=== PATIENT | male | born 1960 | race Caucasian/White ===

== ENCOUNTER 2017-11-14 11:55 | Emergency (ER) | payer OTHER ==
[~2017-11-14] VITALS: Ht 172.7 cm; Wt 78.4 kg
--- NOTE | 2017-11-14 12:10 | PHYS DOC ---
Past History Past Medical History History of constipation, benign prosthetic hyperplasia, heartburn, hypertension and chronic neck pain. Smoking: Non-smoker Alcohol Use: None Drug Use: Marijuana Adult General Chief Complaint Chief Complaint: SYNCOPE HPI HPI 57-year-old male presenting the emergency department after having a syncopal episode earlier today. He has had intermittent epigastric abdominal pain over the past few days that he describes as a burning sensation that is nonradiating intermittent and without alleviating factors. He denies fevers chills nausea or vomiting. His pain currently is mild to minimal discomfort. The patient also reports having blood in his stools over the past few days. Review of systems is negative for chest pain shortness of breath fevers chills headache neck stiffness confusion cyanosis lethargy. All other review of systems is negative unless otherwise noted in history of present illness. ED course: 57-year-old male presenting the emergency department today with epigastric abdominal pain and syncope. On arrival the patient is awake and breathing comfortably. Patient has a sinus rhythm on the monitor. Blood pressure is mildly elevated initially. Heart rate within normal limits. EKG obtained which shows sinus rhythm with a regular rate. ST segments are congruent. Not suggestive of ACS. Chest x-ray along with head CT and neck CT and CT abdomen pelvis ordered with blood work. CT unremarkable for acute injury or pathology. Blood work unremarkable. Given the patient's syncopal episode in the context of heart disease associated with blood in the stools, we will admit the patient. We do not have GI here at our hospital so we'll admit the patient to [facility]. I spoke with Dr. Granda who accepts the patient for admission. Review of Systems Review of Systems SEE ABOVE. Current Medications Current Medications Current Medications Medications (Trade) Dose Ordered Sig/Miles Start Time Stop Time Status Last Admin Dose Admin Sodium Chloride 1,000 ml @ 1,000 mls/hr 1X ONCE 11/14/17 12:15 11/14/17 13:14 UNV Physical Exam Physical Exam SEE ABOVE Constitutional: Well developed, well nourished, no acute distress, non-toxic appearance. [] HENT: Normocephalic, atraumatic, bilateral external ears normal, oropharynx moist, no oral exudates, nose normal. [] Eyes: PERRLA, EOMI, conjunctiva normal, no discharge. [] Neck: Normal range of motion, no tenderness, supple, no stridor. [] Cardiovascular:Heart rate regular rhythm, no murmur [] Lungs & Thorax: Bilateral breath sounds clear to auscultation [] Abdomen: Bowel sounds normal, soft, no tenderness, no masses, no pulsatile masses. Negative McBurney's point. Negative Davalos sign. No guarding. No rebound tenderness. Skin: Warm, dry, no erythema, no rash. [] Back: No tenderness, no CVA tenderness. [] Extremities: No tenderness, no cyanosis, no clubbing, ROM intact, no edema. [] Neurologic: Mental status: Awake oriented and alert x3 Cranial nerves: Extraocular movements intact, eyebrows keyanna bilaterally, smile symmetric, uvula elevation nl, shoulder shrug intact bilaterally, tongue protrusion normal DTRs: 2+ Sensation: equal and normal in all extremities Strength: 5/5 in upper and lower extremities bilaterally Psychologic: Affect normal, judgement normal, mood normal. [] EKG EKG [] Radiology/Procedures Radiology/Procedures [] Course & Med Decision Making Course & Med Decision Making Pertinent Labs and Imaging studies reviewed. (See chart for details) [] Dragon Disclaimer Dragon Disclaimer This electronic medical record was generated, in whole or in part, using a voice recognition dictation system. Departure Departure: Impression: Primary Impression: Syncope Additional Impressions: Abdominal pain Blood in stool Disposition: XFER SHT-TRM HOSP Condition: STABLE Problem Qualifiers MICHELLE CUELLAR MD Nov 14, 2017 12:10
[2017-11-14] MEDS ORDERED: IV NORMAL SALINE 1,000ML 1,000 ML IV ONE (12:15)
[2017-11-14 12:25] LABS: BASO # 0.1 x10^3/uL (0.0-0.2); BASO % 1 % (0-3); EOS # 0.2 x10^3/uL (0.0-0.7); EOS % 3 % (0-3); HEMATOCRIT 44.3 % (39.0-53.0); LYMPH # 1.5 x10^3/uL (1.0-4.8); LYMPH % 21 % (24-48); MEAN CORPUSCULAR HEMOGLOBIN 30 pg (25-35); MEAN CORPUSCULAR HGB CONC 34 g/dL (31-37); MEAN CORPUSCULAR VOLUME 87 fL (79-100); MONO # 0.5 x10^3/uL (0.0-1.1); MONO % 7 % (0-9); NEUT # 4.7 x10^3uL (1.8-7.7); NEUT % 67 % (31-73); PLATELET COUNT 338 x10^3/uL (140-400); RED BLOOD COUNT 5.07 x10^6/uL (4.30-5.70); RED CELL DISTRIBUTION WIDTH 13.3 % (11.5-14.5); WHITE BLOOD COUNT 6.9 x10^3/uL (4.0-11.0)
[2017-11-14] MEDS ORDERED: IOHEXOL 300 MG/ML 75 ML VIAL. IV ONE (12:30)
[2017-11-14 12:36] LABS: CALCIUM 9.6 mg/dL (8.5-10.1); POTASSIUM 4.5 mmol/L (3.5-5.1)
--- NOTE | 2017-11-14 12:48 | RAD ---
PQRS Compliance Statement: One or more of the following individualized dose reduction techniques were utilized for this examination: 1. Automated exposure control 2. Adjustment of the mA and/or kV according to patient size 3. Use of iterative reconstruction technique CT head and cervical spine without contrast 11/14/2017 12:10 PM INDICATION: Syncope today. Head and neck pain. COMPARISON: None available TECHNIQUE: Multiple axial CT images of the head were obtained from skull base through the vertex without intravenous contrast. Multiple axial CT images of the cervical spine were obtained without intravenous contrast. Coronal and sagittal reformats are provided. FINDINGS: Head: Ventricles, sulci and basal cisterns are within normal limits. There is no hydrocephalus. Hernandez-white matter differentiation is normal. There is no acute intracranial hemorrhage. There is no mass, mass effect or midline shift. Posterior fossa is normal in appearance. Visualized portions of the orbits are normal with exception of right lens replacement. Moderate mucosal thickening is identified involving the ethmoid air cells and sphenoid sinuses. Mastoid air cells are well aerated. Scalp and calvaria are normal. Cervical spine: Alignment of the cervical spine is normal. Skull base is intact. Craniocervical junction is normal in appearance. Atlantoaxial articulation is normal. Vertebral body heights are maintained without evidence for acute fracture. There is moderate disc height loss at C6-C7 with marginal osteophytosis and endplate sclerosis. There is mild disc height loss at C5-C6. There is moderate facet arthropathy on the left at C2-C3 and C7-T1. There is advanced facet arthropathy on the right at C7-T1. There is moderate to severe left neuroforaminal stenosis at C6-C7 secondary to posterior disc osteophyte complex, moderate uncovertebral joint disease and facet arthropathy. No significant spinal canal stenosis. There is no prevertebral soft tissue swelling. Thyroid gland is normal in appearance. Mild emphysematous changes are identified at the lung apices. IMPRESSION: 1. No acute intracranial hemorrhage. 2. No acute fracture or malalignment of the cervical spine. Mild cervical spondylosis. Electronically signed by: Tere Vargas MD (11/14/2017 12:45 PM) [id number]
--- NOTE | 2017-11-14 12:51 | RAD ---
EXAM: Chest, single view. HISTORY: Near syncope. COMPARISON: None. FINDINGS: A frontal view of the chest is obtained. There is no infiltrate, pleural effusion or pneumothorax. The heart is normal in size. There is a small nodular opacity overlying the right lower lobe possibly due to a nipple shadow. The heart is normal in size. IMPRESSION: 1. No acute pulmonary finding. 2. Small nodular opacity overlying the right lower lobe possibly due to a nipple shadow. Short-term follow-up can be performed following placement of nipple markers to exclude a nodule in this location. Electronically signed by: Delma Stuart MD (11/14/2017 12:48 PM) [place] [id number]
[2017-11-14] MEDS ORDERED: FINA5TAB4 PO (12:53)
[2017-11-14] MEDS ORDERED: METO25TA4 PO (12:53)
[2017-11-14] MEDS ORDERED: TRAM50TA PO (12:53)
[2017-11-14] MEDS ORDERED: LISI-334 PO (12:53)
[2017-11-14] MEDS ORDERED: ASPI-630 PO (12:53)
[2017-11-14] MEDS ORDERED: DOCU100C28 PO (12:53)
[2017-11-14] MEDS ORDERED: IBUP800T19 PO (12:53)
[2017-11-14] MEDS ORDERED: [UNRECOGNIZED DRUG - CODE] PO (12:53)
[2017-11-14] MEDS ORDERED: HYDR-2758 PO (12:53)
[2017-11-14] MEDS ORDERED: RANI150C PO (12:53)
--- NOTE | 2017-11-14 12:56 | RAD ---
PQRS Compliance Statement: One or more of the following individualized dose reduction techniques were utilized for this examination: 1. Automated exposure control 2. Adjustment of the mA and/or kV according to patient size 3. Use of iterative reconstruction technique CT abdomen/pelvis with contrast 11/14/2017 12:22 PM INDICATION: Syncope with epigastric pain COMPARISON: None available TECHNIQUE: Multiple axial CT images of the abdomen and pelvis were obtained after the intravenous administration of 75 mL Omnipaque 300. Coronal and sagittal reformats are provided. FINDINGS: Visualized portions of the lung bases are clear. Heart size is within normal limits. No suspicious hepatic masses are identified. Liver is homogeneous in enhancement. Spleen, bilateral adrenal glands, and pancreas are normal in appearance. Gallbladder is present without adjacent inflammatory changes. The abdominal aorta is normal in course and caliber. There are no pathologically enlarged lymph nodes in the abdomen and pelvis. There is no abdominal free fluid. There is no free intraperitoneal air. Mild atherosclerotic changes are present. The kidneys enhance symmetrically. There is no suspicious renal mass. There is no hydronephrosis. There are no suspected calculi within the kidneys, ureters or urinary bladder. There is a 4 mm hypoattenuating lesion in the inferior pole right kidney, statistically favor to represent a simple cyst. Small and large bowel are normal in caliber. There is no evidence for bowel obstruction. There are no pericolonic inflammatory changes. A normal, nondilated appendix is visualized without adjacent inflammatory changes. Urinary bladder is within normal limits given degree of distention. Prostate is mildly enlarged measuring 3.7 x 5.5 cm. No suspicious osseous abnormality is identified. Inferior endplate Schmorl's node is identified at T12. IMPRESSION: No acute abnormality is identified in abdomen and pelvis. Electronically signed by: Tere Vargas MD (11/14/2017 12:53 PM) [id number]
[2017-11-14 13:26] VITALS: BP 159/104
--- NOTE | 2017-11-14 14:07 | EKG ---
[address] [address] Test Date: 2017-11-14 Test Time: 12:01:08 Pat Name: FERN PALACIOS Department: Room: Gender: M [employer] Supervisor: : [id number] Requested By: MICHELLE CUELLAR Order Number: [id number] Reading MD: Eliezer Lindquist MD Measurements Intervals [place] Rate: 84 P: 61 WA: 148 QRS: 28 QRSD: 72 T: 53 QT: 344 QTc: 410 Interpretive Statements SINUS RHYTHM Electronically Signed On 11-15-2017 12:14:28 CDT by Eliezer Lindquist MD
== END 2017-11-14 15:22 | disposition short-term general hospital (02) ==
LOC: ER 11:55
DX: R55 Syncope and collapse (principal); R10.13 Epigastric pain; K92.1 Melena; I10 Essential (primary) hypertension; G89.29 Other chronic pain
CPT/HCPCS: 36415; 70450; 71045; 72125; 74177; 80048; 84484; 85025; 85379; 86850; 86870; 86900; 86901; 93005; 96360; 99285-25; J7030